=== PATIENT | male | born 1965 | race Caucasian/White ===

== ENCOUNTER 2016-09-30 13:36 | Observation (INO) | payer OTHER ==
[2016-09-30] MEDS ORDERED: Ondansetron INJ* 2 MG/ML VIAL IV ONE (14:05)
[2016-09-30] MEDS ORDERED: Famotidine IV* 10 MG/ML 2 ML (20 mg) IV ONE (14:05)
[2016-09-30 14:23] LABS: Hematocrit 45 % (42-52); Hemoglobin 15.2 g/dl (14.0-18.0); Mean Corpuscular HGB Conc 34 g/dl (31-36); Mean Corpuscular Hemoglobin 30 pg (27-31); Mean Corpuscular Volume 89 fL (80-94); Mean Platelet Volume 8 um3 (7.4-10.4); Red Cell Distribution Width 14 % (10.5-15)
[2016-09-30 14:38] LABS: Albumin 4.3 g/dL (3.2-5.2); BUN/Creatinine Ratio 23.2 (8-20); Calcium 9.7 mg/dL (8.6-10.3); EGFR African American 126.4 (>60); EGFR Non-African American 98.3 (>60); Globulin 3.2 g/dL (2-4); Magnesium 2.1 mg/dL (1.9-2.7); Potassium 3.6 mmol/L (3.5-5.0); Total Bilirubin 1.5 mg/dL (0.2-1.0); Total Protein 7.5 g/dL (6.4-8.9)
[2016-09-30 14:41] LABS: Troponin I 0.01 ng/mL (<0.04)
--- NOTE | 2016-09-30 14:49 | RAD ---
HISTORY: Chest pain COMPARISONS: January 28, 2016 VIEWS: 4: Frontal dual-energy and lateral views of the chest. FINDINGS: CARDIOMEDIASTINAL SILHOUETTE: The cardiomediastinal silhouette is normal. TY: The ty are normal. PLEURA: The costophrenic angles are sharp. No pleural abnormalities are noted. LUNG PARENCHYMA: The lungs are clear. ABDOMEN: The upper abdomen is clear. There is no subphrenic gas. BONES AND SOFT TISSUES: Degenerative changes are noted along the spine. OTHER: None. IMPRESSION: NO ACTIVE CARDIOPULMONARY DISEASE.
[2016-09-30 15:00] LABS: T4 10.25 mcg/mL (6.09-12.23)
[2016-09-30 15:01] LABS: TSH (Thyroid Stimulating Horm) 0.92 mcIU/mL (0.34-5.60)
[2016-09-30] MEDS ORDERED: oxyCODONE TAB* 5 MG TAB PO ONE (15:47)
[2016-09-30] MEDS ORDERED: Dextrose 50% Syringe 50 ML* 25 GM/50 ML SYRINGE IV PUSH PRN (17:11)
[2016-09-30] MEDS ORDERED: Baclofen TAB* 10 MG PO PRN (17:12)
[2016-09-30] MEDS ORDERED: Colchicine* 0.6 MG TAB PO PRN (17:12)
[2016-09-30] MEDS ORDERED: LORazepam TAB(*) 1 MG PO PRN (17:12)
[2016-09-30] MEDS ORDERED: Aspirin TAB* 325 MG PO ONE (17:23)
[2016-09-30 17:32] LABS: Urine Bilirubin Negative (Negative); Urine Glucose Negative (Negative); Urine Nitrite Negative (Negative)
[2016-09-30 17:34] LABS: HDL Cholesterol 29.4 mg/dL
--- NOTE | 2016-09-30 20:55 | HP ---
CC: Dr. Mejia * [facility] MEDICINE HISTORY AND PHYSICAL: DATE OF ADMISSION: 09/30/16 ATTENDING PHYSICIAN: Ladonna Lizarraga MD * (dictation provided by David Lafleur NP ). CHIEF COMPLAINT: Chest pain, shortness of breath, diaphoresis, nausea, lightheadedness. HISTORY OF PRESENT ILLNESS: Mr. Sheridan is a 51-year-old male with a past medical history of morbid obesity; obstructive sleep apnea with CPAP; chronic back pain, on narcotic therapy; hypertension; non-insulin dependent diabetes; anxiety; and GERD, who presents today to the hospital with concern for multiple complaints. Mr. Sheridan states he has been having increased sweating over the past 2 weeks. He states he will be sitting and resting inside his home where it is cool and he will be sweating profusely. His does point out that it has been much warmer recently, but the patient feels that this is still unusual. He woke up this morning and was feeling okay. He went outside and was sitting on the porch eating a nutritional bar when he suddenly felt diaphoresis. He was severely nauseous. He had chest pain that radiated into his back and down into his arms and legs. He felt very lightheaded. He was joined by friends who were helping him unload some stones around his property. He was able to get up and walk around with his friends, although he did not participate in moving of these heavy stones. He states that his friends said, "you don't look good" and they noted that he was pale. He states he felt dizzy , lightheaded. He felt "drunk." He felt that he was stumbling around a bit. He has continued to feel nauseous but he did not vomit. He states that many of these symptoms are things that he has had in the past with his chronic chest pain, anxiety, and GERD, but that there was something much more profound and severe about the symptoms that he felt today. In addition to all of this in the emergency room today, he is reporting some lower extremity numbness bilaterally and achiness in his arms, legs, head, and face. He states that he "feels like I have been hit by a truck." He denies any other recent acute symptoms. He has had no fever. He has had no diarrhea. He has recently had some blood in his stool for which he has been worked up by Dr. Carmichael including a colonoscopy with diagnosis of diverticulosis, for which he is supposed to be taking suppositories, though he has not started those yet due to difficulty of application. He denies any dysuria and no rashes or lesions. I will note that he did confirm shortness of breath and he describes frothy phlegm and coughing frequently. In the emergency room, Mr. Sheridan had labs which showed no leukocytosis. His electrolytes were normal. His kidney function was normal. His troponin was normal. His EKG showed chronic changes including Q-waves in 2, 3, aVF and V2 through V5, but no evidence of ischemia with a sinus tachycardia. He had a chest x-ray which showed no acute process. PAST MEDICAL HISTORY: 1. Morbid obesity. 2. GERD. 3. Gout. 4. Depression. 5. Non-insulin dependent diabetes. 6. Hypertension. 7. Chronic pain, on chronic narcotics. 8. Obstructive sleep apnea, with home CPAP. MEDICATIONS: 1. Albuterol 2 puffs inhaled q.4 hours p.r.n. 2. Liraglutide 1.2 mg subcutaneously daily. 3. Allopurinol 300 mg p.o. daily. 4. Baclofen 10 mg p.o. b.i.d. p.r.n. 5. Chlorthalidone 25 mg p.o. daily. 6. Colchicine 0.6 mg p.o. daily p.r.n. 7. Fluoxetine 80 mg p.o. daily. 8. Lorazepam 1 mg p.o. q.6 hours p.r.n. 9. Metoprolol succinate 50 mg p.o. b.i.d. 10. Oxycodone 10 mg p.o. 4 times a day . 11. Pantoprazole 40 mg p.o. b.i.d. 12. Potassium chloride 10 mEq p.o. daily. 13. Ramipril 20 mg p.o. daily. ALLERGIES: CLINDAMYCIN, PREGABALIN, and FEBUXOSTAT. FAMILY HISTORY: The patient reports his mother at age 39 related to ovarian cancer. His father at 71 related to heart disease. SOCIAL HISTORY: The patient has continued use of tobacco via chewing. He states he has done so since he was a teenager. No report of alcohol or drug use. He lives with his , his healthcare proxy. REVIEW OF SYSTEMS: A 14-point review of systems was completed with Mr. Sheridan, and all those not mentioned above were negative. PHYSICAL EXAMINATION GENERAL: Mr. Sheridan is lying in the bed with at his bedside. He is in good spirits and in no acute distress. VITAL SIGNS: Blood pressure 131/76, heart rate 103, temperature 97.8, respiratory rate 20, O2 saturation 98% on 2 L nasal cannula. LUNGS: Clear to auscultation bilaterally with no accessory muscle use and good aeration. HEART: S1, S2. No murmur, rub, or gallop, and regular. ABDOMEN: Soft, nontender with bowel sounds positive x4. EXTREMITIES: No cyanosis or edema. NEURO: He is alert. He is oriented x3. He moves all extremities equally. There is no facial asymmetry or focal weakness. Extraocular movements are intact. SKIN: Intact. LABORATORY DATA: WBC 10.0, hemoglobin 15.2, hematocrit 45, and platelet count 242,000. D-dimer is less than 200. Sodium 135, potassium 3.6, chloride 98, serum bicarbonate 29, BUN 19, creatinine 0.82, glucose 147, lactic acid 1.6. Troponin is 0.01. BNP 14. Chest x-ray shows no acute intrathoracic process. EKG shows sinus tachycardia with a heart rate of 100 with Q-waves noted in 2 to 3, aVF and V2 through V5. ASSESSMENT: Mr. Sheridan is a 51-year-old male with a past medical history of morbid obesity, type 2 diabetes, hypertension, chronic pain and obstructive sleep apnea on CPAP as well as anxiety and gastroesophageal reflux disease, who presents to the hospital today with concern for multiple complaints including chest pain, shortness of breath, nausea, pain in the arm and legs, lightheadedness, and dizziness. Our plans are for observation in the hospital for the followin. Chest pain: The patient has a chronic complaint of chest pain and notes that he saw Dr. Recinos back in 2015 for followup of his chronic chest pain. At that time, a note was made that the patient had a stress test in July 2014 that was a stress echo that was negative. The patient's first troponin is 0.01. Plans are for repeat troponins x2. He will be monitored on the telemetry floor. He will go on for a transthoracic echocardiogram and a chemical nuclear stress test. I note that Dr. Recinos makes mention of the fact that the patient was too large to fit in their scanner and I question whether or not there might be difficulty with continuing with a nuclear medicine scan here, but I will defer this to the morning team to discuss this with Cardiology tomorrow a.m. The patient will have aspirin daily as well. I am also checking fasting lipid profile. 2. Near syncopal type symptoms: The patient has multiple somatic complaints that are difficult to interpret, but he seems to be describing an episode in which he was diaphoretic and nauseous and lightheaded. His telemetry monitoring here thus far has been unremarkable. We will continue with telemetry monitoring to rule out arrhythmia and also plan to order a transthoracic echocardiogram. 3. Shortness of breath: The patient has complained of shortness of breath within the context of normal O2 saturation on room air. I did check a D-dimer to rule out a pulmonary embolism which was neagevie. His chest x-ray shows no acute process. We will continue with workup for heart arrhythmia or possible acute coronary syndrome as per above. 4. Nausea: Again, this appears also to be a chronic complaint as I note that the patient has been followed by GI for upper endoscopies for several years. He has known gastroesophageal reflux disease, for which I will continue his Protonix. At this time, I do not plan for any further workup given the chronicity of this complaint, but further testing could be added as based on clinical course. 5. Type 2 diabetes: Plan to hold Victoza. The patient will have blood glucoses q.a.c. with a lispro sliding scale. 6. Hypertension: Plan to continue metoprolol, Ramipril and chlorthalidone. 7. Chronic pain: Plan to continue the patient's oxycodone and baclofen. 8. Gout: Continue colchicine and allopurinol. 9. DVT prophylaxis with heparin subcu. 10. Code status is full code. 11. Disposition to the telemetry floor. TIME SPENT: Approximately 60 minutes was spent on the admission of this patient , more than half the time spent with the patient at the bedside reviewing the events leading up to this hospitalization, performing my physical examination, and reviewing the plan of care. DAVID LAFLEUR, REEL STRIPPER [id number]/[facility] #: [id number] KADI
[2016-09-30] MEDS ORDERED: oxyCODONE TAB* 5 MG TAB PO SCH ×2 (21:00)
[2016-09-30] MEDS: Metoprolol Succinate XL TAB* 50 MG PO SCH (21:24)
[2016-09-30] MEDS: Omeprazole CAP* 20 MG PO SCH (21:24)
[2016-09-30] MEDS: FLUoxetine CAP* 20 MG PO SCH (21:24)
[2016-09-30] MEDS: Heparin VIAL(*) 5000 UNITS/ML VIAL (FIVE THOUSAND) SUBCUT SCH (21:25)
[2016-09-30] MEDS: oxyCODONE TAB* 5 MG TAB PO SCH (23:17)
[2016-10-01] MEDS: oxyCODONE TAB* 5 MG TAB PO SCH ×6 (03:38→20:27)
[2016-10-01] MEDS: Heparin VIAL(*) 5000 UNITS/ML VIAL (FIVE THOUSAND) SUBCUT SCH ×3 (06:15→21:07)
[2016-10-01] MEDS ORDERED: Perflutren Lipid Microsphere* 3 ML VIAL ONE (07:48)
--- NOTE | 2016-10-01 08:50 | PN ---
Subjective Date of Service: 10/01/16 Interval History: Mr. Sheridan continues to report that he is generally not feeling well. He feels lightheaded at times. He denies chest pain. He denies SOB but has not been ambulating much today. He denies nausea or abdominal pain. Objective Active Medications: Allopurinol (Zyloprim Tab*) 300 mg PO DAILY HUNTER Aspirin (Aspirin Tab*) 325 mg PO DAILY HUNTER Baclofen (Lioresal Tab*) 10 mg PO BID PRN Chlorthalidone (Hygroton Tab*) 25 mg PO DAILY HUNTER Colchicine (Colcrys*) 0.6 mg PO DAILY PRN Dextrose (D50w Syringe 50 Ml*) 12.5 gm IV PUSH .FOR FS < 60 - SS PRN Fluoxetine HCl (Prozac Cap*) 40 mg PO BID HUNTER Heparin Sodium (Porcine) (Heparin Vial(*)) 5,000 units SUBCUT Q8HR HUNTER Insulin Human Lispro (Humalog*) 0 units SUBCUT AC HUNTER Lorazepam (Ativan Tab(*)) 1 mg PO Q6H PRN Metoprolol Succinate (Toprol Xl Tab*) 50 mg PO BID HUNTER Omeprazole (Prilosec Cap*) 20 mg PO BID HUNTER Oxycodone HCl (Roxycodone Tab*) 10 mg PO Q4H HUNTER Potassium Chloride (Klor Con Er Tab*) 10 meq PO DAILY HUNTER Ramipril (Altace Cap*) 20 mg PO DAILY [facility] Vital Signs 09/30/16 09/30/16 09/30/16 17:12 17:15 17:30 Temperature Pulse Rate 95 94 78 Respiratory 19 Rate Blood Pressure 87/64 92/80 103/62 (mmHg) O2 Sat by Pulse 97 97 97 Oximetry 09/30/16 09/30/16 09/30/16 18:00 18:02 18:09 Temperature Pulse Rate 97 Respiratory 27 Rate Blood Pressure 155/110 129/80 (mmHg) O2 Sat by Pulse 97 Oximetry 09/30/16 09/30/16 09/30/16 18:14 18:59 20:09 Temperature 98.4 F 97.8 F 97.7 F Pulse Rate 90 96 Respiratory 20 17 20 Rate Blood Pressure 145/92 143/88 (mmHg) O2 Sat by Pulse 97 99 Oximetry 09/30/16 09/30/16 10/01/16 23:17 23:58 01:17 Temperature 97.9 F Pulse Rate 100 Respiratory 20 20 16 Rate Blood Pressure 115/80 (mmHg) O2 Sat by Pulse 97 Oximetry 10/01/16 10/01/16 10/01/16 03:38 03:54 05:38 Temperature 98.4 F Pulse Rate 95 Respiratory 16 16 16 Rate Blood Pressure 131/78 (mmHg) O2 Sat by Pulse 99 Oximetry Oxygen Devices in Use Now: None Appearance: Male lying in bed in NAD Eyes: No Scleral Icterus Ears/Nose/Mouth/Throat: Mucous Membranes Moist Neck: Trachea Midline Respiratory: Symmetrical Chest Expansion and Respiratory Effort, Clear to Auscultation Cardiovascular: NL Sounds; No Murmurs; No JVD, No Edema Abdominal: NL Sounds; No Tenderness; No Distention Lymphatic: No Cervical Adenopathy Extremities: No Edema Skin: No Rash or Ulcers Neurological: Alert and Oriented x 3, NL Muscle Strength and Tone Nutrition: Taking PO's Result Diagrams: 09/30/16 14:05 09/30/16 14:05 Additional Lab and Data: Lab Results 09/30/16 Range/Units 14:05 WBC 10.0 (3.5-10.8) 10^3/ul RBC 5.10 (4.0-5.4) 10^6/ul Hgb 15.2 (14.0-18.0) g/dl Hct 45 (42-52) % MCV 89 (80-94) fL MCH 30 (27-31) pg MCHC 34 (31-36) g/dl RDW 14 (10.5-15) % Plt Count 242 (150-450) 10^3/ul MPV 8 (7.4-10.4) um3 Neut % (Auto) 83.7 H (38-83) % Lymph % (Auto) 9.6 L (25-47) % [place] % (Auto) 5.1 (1-9) % Eos % (Auto) 0.5 (0-6) % Baso % (Auto) 1.1 (0-2) % Absolute Neuts (auto) 8.4 H (1.5-7.7) 10^3/ul Absolute Lymphs (auto) 1.0 (1.0-4.8) 10^3/ul Absolute Monos (auto) 0.5 (0-0.8) 10^3/ul Absolute Eos (auto) 0.1 (0-0.6) 10^3/ul Absolute Basos (auto) 0.1 (0-0.2) 10^3/ul Absolute Nucleated RBC 0.04 10^3/ul Nucleated RBC % 0.4 Assess/Plan/Problems-Billing Assessment: Mr. Sheridan is a 51 yo male with a PMH of morbid obesity, DM, chronic back, chest and epigastric pain who was admitted on 10/01/16 for symptoms of worsening chest pain with associated lightheadedness, nausea, and diaphoresis. - Patient Problems (1) Chest pain Comment: - Troponin negative x 3, no evidence of ischemia on EKG. - Echo pending. - Stress test will require 2 day protocol, stress portion is abnormal, resting portion to be completed on Tuesday. (2) Near syncope Comment: - Nausea, lightheadedness, diaphoresis and feeling like he would "pass out" described on admission. - Improved, though patient still feels lightheaded at times. Question if related to poor oral intake. He now reports starting a very low carb diet 5 days ago. Consistent carb diet resumed. - Echo pending, no events noted on telemetry. (3) Diabetes Comment: - BGs well controlled. - Hold victoza, Continue lispro SSI coverage with meals. (4) Nicotine abuse Comment: - Patient chews tobacco, cessation strongly encouraged. (5) SUSANA on CPAP Comment: - Continue cpap per home routine. (6) Hypertension Comment: - SBP 90-140s. - Continue chlorthalidone and ramipril. (7) Gout Comment: - Continue allopurinol and colchicine. (8) Chronic pain Comment: - Continue home oxycodone and baclofen. (9) GERD (gastroesophageal reflux disease) Comment: - Continue omeprazole as autosub for pantoprazole. (10) Depression Comment: - Continue prozac. (11) DVT prophylaxis Comment: - Heparin SQ. (12) Full code status Status and Disposition: OBV.
[2016-10-01] MEDS ORDERED: FLUoxetine CAP* 20 MG PO SCH (09:00)
[2016-10-01] MEDS: Omeprazole CAP* 20 MG PO SCH ×2 (09:14→21:07)
[2016-10-01] MEDS: FLUoxetine CAP* 20 MG PO SCH ×2 (09:14→21:06)
[2016-10-01] MEDS: Aspirin TAB* 325 MG PO SCH (09:14)
[2016-10-01] MEDS: Potassium Chlor TAB* 10 MEQ TAB.ER PO SCH (09:15)
[2016-10-01] MEDS: Allopurinol TAB* 300 MG PO SCH (09:15)
[2016-10-01] MEDS: Insulin LISPRO* 1 UNITS UNIT SUBCUT SCH ×3 (09:32→18:02)
[2016-10-01] MEDS ORDERED: oxyCODONE TAB* 5 MG TAB PO ONE (10:03)
[2016-10-01] MEDS ORDERED: Regadenoson* 0.4 MG/5 ML SYRINGE ONE (11:36)
[2016-10-01] MEDS: Ramipril CAP* 10 MG PO SCH (12:38)
[2016-10-01] MEDS: Chlorthalidone TAB* 50 MG PO SCH (12:38)
[2016-10-01] MEDS: Metoprolol Succinate XL TAB* 50 MG PO SCH ×2 (12:38→21:06)
[2016-10-01] MEDS ORDERED: oxyCODONE TAB* 5 MG TAB PO SCH (16:00)
--- NOTE | 2016-10-01 18:10 | ECHO ---
Patient: LANA MCKEON [facility] Rec#: [id number] : 1965 Date: 10/01/2016 Age: 51y Height: 185.42 cm / 73.0 in Weight: 182.8 kg / 402.9 lbs Sex: M BSA: 2.9 Room#: 433 Admit Date#: 09/30/2016 Type: Inpatient Referring: Ladonna Lizarraga MD Reading: Suni Soriano MD Manager Deli: Bre Byers KIESHA CC: Jeancarlos Mejia MD Transthoracic Echocardiogram Indication: CP//SOB BP: 131/78 HR: 91 Rhythm: NSR Findings History: Morbid obesity,DM,gout,HTN,SUSANA with CPAP,depression,GERD. Technical Comments: The study is technically limited due to patient body habitus. Completed at 0912. Left Ventricle: The left ventricular chamber size is normal. Mild concentric left ventricular hypertrophy is observed. The estimated ejection fraction is 50-55%. TDS and limited and endocardium is not well visualized. Abnormal left ventricular diastolic function is observed. Left Atrium: The left atrium is slightly dilated. Right Ventricle: The right ventricle is not well visualized. Right Atrium: The right atrium is not well visualized. Aortic Valve: The aortic valve structure is not well visualized. Mitral Valve: The mitral valve structure is not well visualized. Pulmonic Valve: The pulmonic valve structure is not well visualized. Pericardium: A pericardial fat pad is visualized. Aorta: There is mild dilatation of the ascending aorta. There is no dilatation of the aortic arch. There is mild dilatation of the aortic root. Pulmonary Artery: The main pulmonary artery is not well visualized. Venous: The venous system is not well visualized. Contrast: Definity was used to optimize study. Intravenous contrast was used to enhance endocardial border definition. Summary: There are no significant changes when compared to the previous study done on 06/07/2014 Conclusions TDS and limited. The left ventricular chamber size is normal. Mild concentric left ventricular hypertrophy is observed. The estimated ejection fraction is 50-55%. TDS and limited and endocardium is not well visualized. There is mild dilatation of the ascending aorta. There is mild dilatation of the aortic root. Measurements Name Value Normal Range RVIDd (AP) 2D 3.1 cm (0.9 - 2.6) IVSd (2D) 1.1 cm (0.6 - 1) LVPWd (2D) 1.3 cm (0.6 - 1) LVIDd (2D) 4.7 cm (3.6 - 5.4) LVIDs (2D) 2.9 cm - LV FS (2D) 38 % (25 - 45) EF Teichholz (2D) 6 % - Aortic Annulus 2.4 cm (1.4 - 2.6) Ao root diameter (2D) 3.9 cm (2.1 - 3.5) Ascending Ao 3.8 cm (2.1 - 3.4) Aortic arch 2.8 cm (1.8 - 3.4) Descending Ao 0.6 cm - LA dimension (AP) 2D 4.1 cm (2.3 - 3.8) Name Value Normal Range MV E-wave Vmax 0.4 m/sec - MV deceleration time 111 msec - MV A-wave Vmax 0.7 m/sec - MV E:A ratio 0.54 ratio - LV septal e' Vmax 0.17 m/sec - LV lateral e' Vmax 0.08 m/sec - LV E:e' septal ratio 2.35 ratio - LV E:e' lateral ratio 5 ratio - Name Value Normal Range AV Vmax 1.1 m/sec - AV VTI 20.6 cm - AV peak gradient 5.1 mmHg - AV mean gradient 2.32 mmHg - LVOT Vmax 0.7 m/sec - LVOT VTI 11.4 cm - LVOT peak gradient 1.9 mmHg - LVOT mean gradient 0.91 mmHg - Name Value Normal Range PV Vmax 0.8 m/sec - PV peak gradient 2.31 mmHg -
--- NOTE | 2016-10-01 18:20 | ED ---
Kahlil Cochran Rebecca, scribed for Yonis Lara MD on 09/30/16 at 1434 . HPI Chest Pain - HPI Summary HPI Summary: Pt is a 51 y/o M BIBA who presents to ED c/o CP. Pain began at 0900 this morning while at rest. Pain is midsternal with bilateral UE radiation and is currently not present. When pain began, it was severe, ranked 7-8/10 and after 3 hours it was moderate, ranked 4/10 and is now completely resolved. Pt was given ASA 324 mg and 1 NTG BINDERY ASSISTANT by EMS. Pain alleviated by EMS Tx, aggravated by nothing. He additionally c/o lightheadedness, dizziness, SOB and abd pain with N /D. Denies constipation and vomiting. PMHx MA (x3) after which he had a cholecystectomy and was hospitalized for 4 days due to his heart stopping during surgery. Last stress test was [address] Recinos. - History of Current Complaint Chief Complaint: EDChestPainROMI Time Seen by Provider: 09/30/16 13:55 Hx Obtained From: Patient Onset/Duration: Still Present Time of Onset: 09:00 Initial Severity: Severe - 7-8/10 Current Severity: None Pain Intensity: 0 Pain Scale Used: 0-10 Numeric Chest Pain Location: Mid Sternal Chest Pain Radiates: Yes Chest Pain Radiates To:: Arm - Bilateral UE Character: Burning Aggravating Factor(s): Nothing Alleviating Factor(s): EMS Tx - ASA and NTG Associated Signs and Symptoms: Positive: Dizziness, Shortness of Breath, Lightheadedness, Nausea, Abdominal Pain. Negative: Vomiting - Allergy/Home Medications Allergies/Adverse Reactions: Allergies Allergy/AdvReac Type Severity Reaction Status Date / Time Clindamycin Allergy Unknown Hives Verified 01/28/16 16:22 Pregabalin [From Lyrica] Allergy Unknown Hives Verified 01/28/16 16:22 Febuxostat [From Uloric] Allergy Unknown Verified 01/28/16 16:22 Reaction Details Home Medications: Home Medications Albuterol Sulfate [Proair Respiclick] 2 puff INH Q4HR PRN 09/30/16 [History Confirmed 09/30/16] Baclofen TAB* [Lioresal TAB*] 10 mg PO BID PRN 09/30/16 [History Confirmed 09/30] Chlorthalidone TAB* [Hygroton TAB*] 25 mg PO DAILY 09/30/16 [History Confirmed 09/30/16] FLUoxetine CAP* [PROzac CAP*] 80 mg PO DAILY 09/30/16 [History Confirmed ] LORazepam TAB(*) [Ativan 1 MG TAB (*)] 1 mg PO Q6H PRN 09/30/16 [History Confirmed 09/30/16] Liraglutide (NF) [Victoza (NF)] 1.2 mg SUBCUT DAILY 09/30/16 [History Confirmed 09/30/16] Metoprolol Succinate XL TAB* [Toprol XL TAB*] 50 mg PO BID 09/30/16 [History Confirmed 09/30/16] Oxycodone TAB(NF) [Oxycodone HCl 10 MG] 10 mg PO QID 09/30/16 [History Confirmed 09/30/16] Pantoprazole TAB (NF) [Protonix TAB (NF)] 40 mg PO BID 09/30/16 [History Confirmed 09/30/16] Potassium Chlor TAB* [Klor Con ER TAB*] 10 meq PO DAILY 09/30/16 [History Confirmed 09/30/16] Ramipril CAP* [Altace CAP*] 20 mg PO DAILY 09/30/16 [History Confirmed 09/30/16] PMH/Surg Hx/FS Hx/Imm Hx Endocrine/Hematology History: Reports: Hx Diabetes - type II Cardiovascular History: Reports: Hx Hypercholesterolemia, Hx Hypertension - CONTROLLED W/ MEDS, Hx Myocardial Infarction Denies: Hx Congestive Heart Failure, Hx Pacemaker/ICD Comment Only: Other Cardiovascular Problems/Disorders - MA Respiratory History: Reports: Hx Chronic Obstructive Pulmonary Disease (COPD), Hx Sleep Apnea - severe apnea diagnose April 2012; CPAP, Other Respiratory Problems/Disorders - SLEEP APNEA GI History: Reports: Hx Gastroesophageal Reflux Disease Denies: Other GI Disorders History: Denies: Hx Dialysis, Hx Renal Disease Musculoskeletal History: Reports: Hx Arthritis - osteo, Hx Back Problems, Hx Gout Neurological History: Reports: Other Neuro Impairments/Disorders - PAIN CLINIC PATIENT Psychiatric History: Reports: Hx Panic Disorder - Surgical History Surgery Procedure, Year, and Place: 1988 anal fissure repair, 1990 [facility] (left) knee, 2008 [facility] [place]- cholecystectomy, 04/2008 [facility] [place] gastroscopy w/ CLOtest biopsy & distal esophageal biopsy. HEMORROIDECTOMY - Immunization History Date of Tetanus Vaccine: Unk Date of Influenza Vaccine: None Infectious Disease History: No Infectious Disease History: Denies: Traveled Outside the [place] in Last 30 Days - Family History Known Family History: Positive: Cardiac Disease, Other - cancer - Social History Alcohol Use: None Hx Substance Use: No Substance Use Type: Reports: Prescribed Substance Use Comment - Amount & Last Used: oxycodone Hx Tobacco Use: No Smoking Status (MU): Never Smoked Tobacco Type: Smokeless Tobacco Amount Used/How Often: 3x/day Have You Smoked in the Last Year: No Review of Systems Positive: Chest Pain Positive: Shortness Of Breath Positive: Abdominal Pain, Diarrhea, Nausea, Other - NEGATIVE: constipation. Negative: Vomiting Neurological: Other - Lightheadedness, dizziness All Other Systems Reviewed And Are Negative: Yes Physical Exam - Summary Physical Exam Summary: VITAL SIGNS: Reviewed. GENERAL: ~Patient is a morbidly obese male who is lying comfortable in the stretcher. ~Patient is not in any acute respiratory distress. HEAD AND FACE: No signs of trauma. ~No ecchymosis, hematomas or skull depressions. No sinus tenderness. EYES: PERRLA, EOMI x 2, No injected conjunctiva, no nystagmus. EARS: Hearing grossly intact. Ear canals and tympanic membranes are within normal limits. MOUTH: Oropharynx within normal limits. NECK: Supple, trachea is midline, no adenopathy, no JVD, no carotid bruit, no c- spine tenderness, neck with full ROM. CHEST: Symmetric, no tenderness at palpation LUNGS: Clear to auscultation bilaterally. No wheezing or crackles. CVS: Regular rate and rhythm, S1 and S2 present, no murmurs or gallops appreciated. ABDOMEN: Soft, epigastric tenderness. No signs of distention. No rebound no guarding, and no masses palpated. Bowel sounds are normal. EXTREMITIES: FROM in all major joints, no edema, no cyanosis or clubbing. NEURO: Alert and oriented x 3. No acute neurological deficits. Speech is normal and follows commands. SKIN: Dry and warm Triage Information Reviewed: Yes Vital Signs On Initial Exam: Initial Vitals Temp Pulse Resp BP Pulse Ox 97.9 F 103 20 131/76 96 09/30/16 13:41 09/30/16 13:41 09/30/16 13:41 09/30/16 13:41 09/30/16 13:41 Vital Signs Reviewed: Yes - [place] Coma Scale Coma Scale Total: 15 Diagnostics - Vital Signs Vital Signs Temp Pulse Resp BP Pulse Ox 09/30/16 13:48 97.8 F 103 20 131/76 98 09/30/16 13:41 97.9 F 103 20 131/76 96 - Laboratory Lab Results: Lab Results 09/30/16 Range/Units 14:05 WBC 10.0 (3.5-10.8) 10^3/ul RBC 5.10 (4.0-5.4) 10^6/ul Hgb 15.2 (14.0-18.0) g/dl Hct 45 (42-52) % MCV 89 (80-94) fL MCH 30 (27-31) pg MCHC 34 (31-36) g/dl RDW 14 (10.5-15) % Plt Count 242 (150-450) 10^3/ul MPV 8 (7.4-10.4) um3 Neut % (Auto) 83.7 H (38-83) % Lymph % (Auto) 9.6 L (25-47) % [place] % (Auto) 5.1 (1-9) % Eos % (Auto) 0.5 (0-6) % Baso % (Auto) 1.1 (0-2) % Absolute Neuts (auto) 8.4 H (1.5-7.7) 10^3/ul Absolute Lymphs (auto) 1.0 (1.0-4.8) 10^3/ul Absolute Monos (auto) 0.5 (0-0.8) 10^3/ul Absolute Eos (auto) 0.1 (0-0.6) 10^3/ul Absolute Basos (auto) 0.1 (0-0.2) 10^3/ul Absolute Nucleated RBC 0.04 10^3/ul Nucleated RBC % 0.4 Result Diagrams: 09/30/16 14:05 09/30/16 14:05 Lab Statement: Any lab studies that have been ordered have been reviewed, and results considered in the medical decision making process. - Radiology CXR Xray Interpretation: No Acute Changes - NO ACTIVE CARDIOPULMONARY DISEASE. Radiology Interpretation Completed By: Radiologist - EKG 1359 Cardiac Rate: Tachycardia ST Segment: Normal Ectopy: None EKG Interpretation: No ST elevations; similar to EKG on 01/28/16. Chest Pain Course/Dx - Course Assessment/Plan: Pt is a 51 y/o M BIBA who presents to ED c/o CP. Pain began at 0900 this morning while at rest. Pain is midsternal with bilateral UE radiation and is currently not present. When pain began, it was severe, ranked 7-8/10 and after 3 hours it was moderate, ranked 4/10 and is now completely resolved. Pt was given ASA 324 mg and 1 NTG BINDERY ASSISTANT by EMS. Pain alleviated by EMS Tx, aggravated by nothing. He additionally c/o lightheadedness, dizziness, SOB and abd pain with N/D. Denies constipation and vomiting. PMHx MA (x3) after which he had a cholecystectomy and was hospitalized for 4 days due to his heart stopping during surgery. Last stress test was [address] Recinos. Test results w/o any significant abnormality except glucose of 147. Troponin of 0.01. EKG reveal sinus tachy with no ST elevations and CXR reveals NO ACTIVE CARDIOPULMONARY DISEASE. I believe that most of the sx are secondary to his GERD , however the pt has a long Hx of MIs, HTN and morbid obesity, therefore I disclosed the case with Dr. Rea who accepted the pt for admission. The pt is hemodynamically stable and A&Ox3. - Diagnoses Provider Diagnoses: Chest pain, r/o ACS Discharge - Discharge Plan Condition: Stable Disposition: ADMITTED TO [facility] The documentation as recorded by the Kahlil alvarez Rebecca accurately reflects the service I personally performed and the decisions made by me, Yonis Lara MD.
[2016-10-01] MEDS ORDERED: Bisacodyl SUPP* 10 MG SUPP PR PRN (20:49)
[2016-10-01] MEDS ORDERED: Al Hydrox/Mg Hydrox/Simet LIQ* 30 ML UDC PO PRN (21:04)
[2016-10-01] MEDS ORDERED: Docusate CAP* 100 MG PO PRN (23:52)
[2016-10-01] MEDS ORDERED: Senna TAB PO PRN (23:52)
[2016-10-02] MEDS: oxyCODONE TAB* 5 MG TAB PO SCH ×3 (00:09→09:18)
[2016-10-02] MEDS: Heparin VIAL(*) 5000 UNITS/ML VIAL (FIVE THOUSAND) SUBCUT SCH (04:59)
[2016-10-02] MEDS: Allopurinol TAB* 300 MG PO SCH (09:17)
[2016-10-02] MEDS: Metoprolol Succinate XL TAB* 50 MG PO SCH (09:17)
[2016-10-02] MEDS: Ramipril CAP* 10 MG PO SCH (09:17)
[2016-10-02] MEDS: Potassium Chlor TAB* 10 MEQ TAB.ER PO SCH (09:17)
[2016-10-02] MEDS: Aspirin TAB* 325 MG PO SCH (09:17)
[2016-10-02] MEDS: Chlorthalidone TAB* 50 MG PO SCH (09:17)
[2016-10-02] MEDS: FLUoxetine CAP* 20 MG PO SCH (09:18)
[2016-10-02] MEDS: Omeprazole CAP* 20 MG PO SCH (09:18)
[2016-10-02] MEDS: Insulin LISPRO* 1 UNITS UNIT SUBCUT SCH (09:19)
--- NOTE | 2016-10-02 10:00 | RAD ---
HISTORY: Chest pain, shortness breath, hypertension, diabetes, obesity, family history of heart disease, previous DC COMPARISONS: May 12, 2008 TECHNIQUE: A 2 day stress/rest myocardial perfusion study was performed, with pharmacologic stress. The stress portion was monitored by Dr. Soriano. Gated SPECT imaging was performed, without CT-based attenuation correction secondary to patient body habitus DOSE: Stress: Technetium 99m tetrofosmin, 25.78 millicuries, injected at 10:40 AM on October 01, 2016 Rest: Technetium 99m tetrofosmin, 25.52 millicuries, injected at 8:45 AM on October 02, 2016 Pharmacologic agent: Lexiscan FINDINGS: CARDIAC MONITORING: No new ST changes with stress EF: 51 % TID: 1.16 MOTION: Normal motion, with normal wall thickening. PERFUSION: There is a fixed apical defect. This is similar to the previous examination. OTHER: None IMPRESSION: FIXED APICAL DEFECT SUGGESTIVE OF PREVIOUS INFARCT VERSUS PHYSIOLOGIC APICAL THINNING, SIMILAR TO 2008 ASSESSMENT: LOW RISK. Based on imaging criteria from ACC/AHA 2002. Guideline Update for the Management of Patient's with Chronic Stable Angina, table 23. Noninvasive Risk Stratification.
--- NOTE | 2016-10-02 10:00 | RAD ---
HISTORY: Chest pain, shortness breath, hypertension, diabetes, obesity, family history of heart disease, previous [place] COMPARISONS: May 12, 2008 TECHNIQUE: A 2 day stress/rest myocardial perfusion study was performed, with pharmacologic stress. The stress portion was monitored by Dr. Soriano. Gated SPECT imaging was performed, without CT-based attenuation correction secondary to patient body habitus DOSE: Stress: Technetium 99m tetrofosmin, 25.78 millicuries, injected at 10:40 AM on October 01, 2016 Rest: Technetium 99m tetrofosmin, 25.52 millicuries, injected at 8:45 AM on October 02, 2016 Pharmacologic agent: Lexiscan FINDINGS: CARDIAC MONITORING: No new ST changes with stress EF: 51 % TID: 1.16 MOTION: Normal motion, with normal wall thickening. PERFUSION: There is a fixed apical defect. This is similar to the previous examination. OTHER: None IMPRESSION: FIXED APICAL DEFECT SUGGESTIVE OF PREVIOUS INFARCT VERSUS PHYSIOLOGIC APICAL THINNING, SIMILAR TO 2008 ASSESSMENT: LOW RISK. Based on imaging criteria from ACC/AHA 2002. Guideline Update for the Management of Patient's with Chronic Stable Angina, table 23. Noninvasive Risk Stratification.
--- NOTE | 2016-10-02 10:42 | PN ---
Subjective Date of Service: 10/02/16 Interval History: Mr. Sheridan reports having some chest discomfort that he relates to GERD and was relieved with antacids and carbonated beverages. He denies other complaint including SOB, nausea, or abdominal pain. Objective Active Medications: Al Hydrox/Mg Hydrox/Simethicone (Maalox Plus*) 30 ml PO Q6H PRN Allopurinol (Zyloprim Tab*) 300 mg PO DAILY HUNTER Aspirin (Aspirin Tab*) 325 mg PO DAILY HUNTER Baclofen (Lioresal Tab*) 10 mg PO BID PRN Chlorthalidone (Hygroton Tab*) 25 mg PO DAILY HUNTER Colchicine (Colcrys*) 0.6 mg PO DAILY PRN Dextrose (D50w Syringe 50 Ml*) 12.5 gm IV PUSH .FOR FS < 60 - SS PRN Docusate Sodium (Colace Cap*) 100 mg PO BID PRN Fluoxetine HCl (Prozac Cap*) 40 mg PO BID HUNTER Heparin Sodium (Porcine) (Heparin Vial(*)) 5,000 units SUBCUT Q8HR HUNTER Insulin Human Lispro (Humalog*) 0 units SUBCUT AC HUNTER Lorazepam (Ativan Tab(*)) 1 mg PO Q6H PRN Metoprolol Succinate (Toprol Xl Tab*) 50 mg PO BID HUNTER Omeprazole (Prilosec Cap*) 20 mg PO BID HUNTER Oxycodone HCl (Roxycodone Tab*) 10 mg PO Q4H HUNTER Potassium Chloride (Klor Con Er Tab*) 10 meq PO DAILY HUNTER Ramipril (Altace Cap*) 20 mg PO DAILY HUNTER Senna (Senokot Tab*) 1 tab PO BEDTIME PRN Vital Signs 10/01/16 10/01/16 10/01/16 11:41 12:38 15:13 Temperature 97.8 F 97.6 F Pulse Rate 86 87 Respiratory 18 18 16 Rate Blood Pressure 163/83 (mmHg) O2 Sat by Pulse 96 95 Oximetry 10/01/16 10/01/16 10/01/16 15:25 15:26 15:47 Temperature Pulse Rate 85 Respiratory 18 Rate Blood Pressure 98/49 98/49 (mmHg) O2 Sat by Pulse Oximetry 10/01/16 10/01/16 10/01/16 20:01 20:26 20:27 Temperature 97.8 F Pulse Rate 89 Respiratory 16 19 Rate Blood Pressure 85/40 120/80 (mmHg) O2 Sat by Pulse 97 Oximetry 10/01/16 10/01/16 10/02/16 22:27 23:40 00:09 Temperature 98.8 F Pulse Rate 85 Respiratory 16 16 18 Rate Blood Pressure 125/79 (mmHg) O2 Sat by Pulse 95 Oximetry 10/02/16 10/02/16 10/02/16 02:09 03:31 04:44 Temperature 98.6 F Pulse Rate 80 Respiratory 16 16 18 Rate Blood Pressure 114/71 (mmHg) O2 Sat by Pulse 97 Oximetry 10/02/16 10/02/16 07:52 09:18 Temperature 97.4 F Pulse Rate 79 Respiratory 16 16 Rate Blood Pressure 128/91 (mmHg) O2 Sat by Pulse 98 Oximetry Oxygen Devices in Use Now: None Appearance: Male sitting up in chair in NAD Eyes: No Scleral Icterus Ears/Nose/Mouth/Throat: Mucous Membranes Moist Neck: Trachea Midline Respiratory: Symmetrical Chest Expansion and Respiratory Effort, Clear to Auscultation Cardiovascular: NL Sounds; No Murmurs; No JVD, No Edema Abdominal: NL Sounds; No Tenderness; No Distention Lymphatic: No Cervical Adenopathy Extremities: No Edema Skin: No Rash or Ulcers Neurological: Alert and Oriented x 3, NL Muscle Strength and Tone Nutrition: Taking PO's Result Diagrams: 09/30/16 14:05 09/30/16 14:05 Additional Lab and Data: Lab Results 09/30/16 Range/Units 14:05 WBC 10.0 (3.5-10.8) 10^3/ul RBC 5.10 (4.0-5.4) 10^6/ul Hgb 15.2 (14.0-18.0) g/dl Hct 45 (42-52) % MCV 89 (80-94) fL MCH 30 (27-31) pg MCHC 34 (31-36) g/dl RDW 14 (10.5-15) % Plt Count 242 (150-450) 10^3/ul MPV 8 (7.4-10.4) um3 Neut % (Auto) 83.7 H (38-83) % Lymph % (Auto) 9.6 L (25-47) % [place] % (Auto) 5.1 (1-9) % Eos % (Auto) 0.5 (0-6) % Baso % (Auto) 1.1 (0-2) % Absolute Neuts (auto) 8.4 H (1.5-7.7) 10^3/ul Absolute Lymphs (auto) 1.0 (1.0-4.8) 10^3/ul Absolute Monos (auto) 0.5 (0-0.8) 10^3/ul Absolute Eos (auto) 0.1 (0-0.6) 10^3/ul Absolute Basos (auto) 0.1 (0-0.2) 10^3/ul Absolute Nucleated RBC 0.04 10^3/ul Nucleated RBC % 0.4 Assess/Plan/Problems-Billing Assessment: Mr. Sheridan is a 51 yo male with a PMH of morbid obesity, DM, chronic back, chest and epigastric pain who was admitted on 10/01/16 for symptoms of worsening chest pain with associated lightheadedness, nausea, and diaphoresis. - Patient Problems (1) Chest pain Comment: - Troponin negative x 3, no evidence of ischemia on EKG. - Echo shows no wall motion or valvular abnormalities and an intact EF. - Stress test was low risk as well. - Suspect related to GERD and anxiety based on patient's description of events and past history. (2) Near syncope Comment: - Resolved. Suspect secondary to anxiety as workup has been negative. - Echo normal, no events noted on telemetry. (3) Diabetes Comment: - BGs well controlled. - Resume victoza. (4) Nicotine abuse Comment: - Patient chews tobacco, cessation strongly encouraged. (5) SUSANA on CPAP Comment: - Continue cpap per home routine. (6) Hypertension Comment: - SBP 90-140s. - Continue chlorthalidone and ramipril. (7) Gout Comment: - Continue allopurinol and colchicine. (8) Chronic pain Comment: - Continue home oxycodone and baclofen. (9) GERD (gastroesophageal reflux disease) Comment: - Continue pantoprazole. (10) Depression Comment: - Continue prozac. (11) DVT prophylaxis Comment: - Heparin SQ. (12) Full code status Status and Disposition: Discharge to home.
[2016-10-02 11:18] VITALS: BP 137/91
--- NOTE | 2016-10-02 14:18 | DS ---
CC: Dr. Mejia. * DISCHARGE SUMMARY: DATE OF ADMISSION: 09/30/16 DATE OF DISCHARGE: 10/02/16 PRIMARY CARE PHYSICIAN: Dr. Mejia. ATTENDING PHYSICIAN: Dr. Joe Sepulveda * (dictation provided by Marj Lafleur NP ) PRIMARY DIAGNOSES: 1. Chest pain, atypical. 2. Gastroesophageal reflux disease. 3. Anxiety. SECONDARY DIAGNOSES: 1. Morbid obesity. 2. Type 2 diabetes, non-insulin dependent. 3. Gout. 4. Depression. 5. Hypertension. 6. Chronic pain on chronic narcotics. 7. Obstructive sleep apnea with home CPAP. MEDICATIONS: At the time of discharge are unchanged, they are: 1. Albuterol 2 puffs inhaled q.4 hours p.r.n. 2. Liraglutide 1.2 mg subcutaneously daily. 3. Allopurinol 300 mg p.o. daily. 4. Baclofen 10 mg p.o. b.i.d. p.r.n. 5. Chlorthalidone 25 mg p.o. daily. 6. Colchicine 0.6 mg p.o. daily p.r.n. 7. Fluoxetine 80 mg p.o. daily. 8. Lorazepam 1 mg p.o. q.6 hours p.r.n. 9. Metoprolol succinate 50 mg p.o. b.i.d. 10. Oxycodone 10 mg p.o. 4 times a day. 11. Pantoprazole 40 mg p.o. b.i.d. 12. Potassium chloride 10 mEq p.o. daily. 13. Ramipril 20 mg p.o. daily. HOSPITAL COURSE: Mr. Sheridan is a 51-year-old male with a past medical history of morbid obesity, diabetes, hypertension, GERD, and anxiety who presents to the hospital on 09/30/16 with concern for chest pain and what was described as a near syncopal episode. Mr. Sheridan states that he recently started a very low carb diet about 5 days ago. On the day of admission he had a sudden onset of generalized discomfort including chest discomfort followed by episode of lightheadedness and nausea and feeling that he was going to pass out. Please see the dictated H an P from myself for complete details. In the emergency room , the patient had troponin which was normal and EKG which showed no evidence of ischemia. Chest x-ray showed no acute process. His other labs are unremarkable. His vital signs are stable. Mr. Sheridan was admitted to the hospital, he had 2 additional troponins, all of which were negative. He went on for a transthoracic echocardiogram which was limited by his body habitus but was read as follows; "The left ventricular chamber size is normal. A mild concentric left ventricular hypertrophy is observed. The estimated ejection fraction is 50% to 55%" The patient had a stress test with chemical stress and the nuclear medicine. The patient was read as low risk. He did show fixed apical defect suggestive of previous infarct versus physiological apical thinning similar to 2009. Mr. Sheridan is doing well today. He reported some chest discomfort after the stress test, which he thinks is related to GERD and resolved with antacids and carbonated beverages. On discussing the case with Mr. Sheridan, I have told him that workup has been completely negative. He feels that perhaps the symptoms are related to GERD and likely anxiety as this has been cause of frequent evaluations for chest pain in the past. Mr. Sheridan is medically stable for discharge to home today to follow up with Dr. Mejia. DISPOSITION: Home DIET: LOW FAT, LOW SALT ACTIVITY: As tolerated. FOLLOW UP PLANS: Pt to follow up with Dr. Mejia in 1-2 weeks. TIME SPENT: Approximately 60 minutes were spent in the discharge of this patient, more than half the time spent with the patient at the bedside reviewing the events, leading up to this hospitalization, and during this hospitalization, performing the physical examination and reviewing my discharge plan. MARJ LAFLEUR NP [id number]/[facility] #: [id number] KADI
== END 2016-10-02 11:52 | disposition home or self-care (01) ==
LOC: ED 13:36 → MEDTELE 17:03
PROVIDERS: ADMIT Internal Medicine; ATTEND Hospitalist
DX: R07.89 Other chest pain (principal); R06.02 Shortness of breath; R55 Syncope and collapse; R11.0 Nausea; K21.9 Gastro-esophageal reflux disease without esophagitis; F41.9 Anxiety disorder, unspecified; E66.01 Morbid (severe) obesity due to excess calories; Z79.899 Other long term (current) drug therapy; E11.9 Type 2 diabetes mellitus without complications; M10.9 Gout, unspecified; I10 Essential (primary) hypertension; F32.9 Major depressive disorder, single episode, unspecified; G89.29 Other chronic pain; G47.33 Obstructive sleep apnea (adult) (pediatric)
CPT/HCPCS: 36415; 71020; 78452; 80053; 80061; 81003; 82550; 82553; 83036; 83605; 83735; 83880; 84436; 84443; 84484; 85025; 85379; 85730; 93005; 93017; 93306; 94660; 96374; 96375; 99283; A9270-GY; A9502; C8929; G0378; J1644; J2405; J2785